=== PATIENT | female | born 1970 | race Caucasian/White ===

== ENCOUNTER → 2016-04-20 | Outpatient (CLI) | payer OTHER ==
[~2016-04-20] MED LIST: IBUP1CAP9 PO; MCRB100 PO; OXYC5TAB PO; PHEN-1043 PO; RANI150T3 PO
== END | disposition home or self-care (01) ==
LOC: C.LABSPEC 17:45
PROVIDERS: ATTEND Urology
DX: N82.1 Other female urinary-genital tract fistulae (principal)

== ENCOUNTER → 2016-05-09 | Outpatient (CLI) | payer OTHER ==
[2016-05-09 17:26] LABS: BASO ABS # 0.08 K/uL (0-0.2); COMPLETE YES; EOS % 2.6 %; HEMATOCRIT 42.8 % (37-47); IG% 0.1 %; LYMPH % 37.1 %; LYMPH ABS # 2.85 K/uL (1.2-3.4); MEAN CELL VOLUME 90.3 fL (80-100); MEAN CORPUSCULAR HEMOGLOBIN 30.4 pg (25-34); MEAN CORPUSCULAR HGB CONC 33.6 g/dl (32-36); MEAN PLATELET VOLUME 11.6 fL (7.4-10.4); MONO % 4.9 %; NEUT % 54.3 %; PLATELET COUNT 294 K/uL (130-400); RED BLOOD COUNT 4.74 M/uL (4.2-5.4); WHITE BLOOD COUNT 7.69 K/uL (4.8-10.8)
[2016-05-09 17:33] LABS: BLOOD UREA NITROGEN 13 mg/dl (7-18); CREATININE 0.94 mg/dl (0.60-1.20); GLUCOSE 89 mg/dl (70-99)
[2016-05-09 17:34] LABS: ALT/SGPT 26 U/L (12-78); BUN/CREATININE RATIO 13.6 (10-20); CALCIUM 8.8 mg/dl (8.5-10.1); CARBON DIOXIDE 24 mmol/L (21-32); CHLORIDE 105 mmol/L (98-107); POTASSIUM 4.1 mmol/L (3.5-5.1); SODIUM 138 mmol/L (136-145)
[2016-05-09 17:36] LABS: ALB/GLOB RATIO 1.3 (0.9-2); ALKALINE PHOSPHATASE 65 U/L (45-117); AST/SGOT 14 U/L (15-37)
== END | disposition home or self-care (01) ==
LOC: C.LABBFT 14:39
PROVIDERS: ATTEND Internal Medicine
DX: N82.1 Other female urinary-genital tract fistulae (principal)

== ENCOUNTER → 2016-07-24 | Outpatient (CLI) | payer OTHER | END | disposition home or self-care (01) | LOC: C.LABSPEC 10:48 | PROVIDERS: ATTEND Nurse Practitioner Family | DX: N39.0 Urinary tract infection, site not specified (principal); R30.0 Dysuria ==

== ENCOUNTER → 2016-10-09 | Outpatient (CLI) | payer OTHER | END | disposition home or self-care (01) | LOC: C.LABSPEC 16:55 | PROVIDERS: ATTEND Nurse Practitioner Family | DX: N39.0 Urinary tract infection, site not specified (principal); N89.8 Other specified noninflammatory disorders of vagina ==

== ENCOUNTER → 2016-11-24 | Outpatient (CLI) | payer OTHER ==
--- NOTE | 2016-11-24 14:46 | DIAGNOSTIC IMAGING REPORT ---
ABDOMEN FOR HERNIA CLINICAL HISTORY: 46 years-old Female presenting with abdominal pain, concern for incisional hernia in the left lower quadrant. TECHNIQUE: Real-time grayscale ultrasound imaging of the left lower quadrant was performed. Color Doppler was also performed. COMPARISON: CT from 12/08/2015. FINDINGS: No hernia is evident. Additionally, provocative maneuvers did not elicit a hernia. No fluid collection. IMPRESSION: 1. No evidence of hernia. Electronically signed by: Aron De La O M.D. 11/24/2016 2:45 PM Dictated Date/Time: 11/24/2016 2:43 PM
== END | disposition home or self-care (01) ==
LOC: C.ULTR 13:48
PROVIDERS: ATTEND Surgery
DX: R10.9 Unspecified abdominal pain (principal)

== ENCOUNTER → 2017-01-02 | Outpatient (CLI) | payer OTHER | END | disposition home or self-care (01) | LOC: C.LABSPEC 16:54 | PROVIDERS: ATTEND Nurse Practitioner Family | DX: R33.9 Retention of urine, unspecified (principal) ==